=== PATIENT | male | born 1970 | race American Indian/Alaskan Native ===

== ENCOUNTER 2018-02-28 18:40 | Emergency (ER) | payer MEDICAID, OTHER ==
[2018-02-28 18:59] VITALS: PULSE 64; RESP 20; TEMP 98.2; O2SAT 100
[2018-02-28] MEDS ORDERED: Sodium Chloride 0.9% 1,000 ML IV ONE (19:42)
[2018-02-28 19:56] LABS: BASO % 0.1 % (0.0-2.0); EOS % 0.1 % (0.0-4.0); HEMOGLOBIN 12.6 g/dL (12.0-18.0); LYMPH # 1.3 K/uL (1.0-4.3); LYMPH % 8.5 % (20.0-40.0); MEAN CELL VOLUME 81.1 fL (80.0-94.0); MEAN CORPUSCULAR HEMOGLOBIN 26.9 pg (27.0-31.0); MEAN CORPUSCULAR HGB CONC 33.2 g/dL (33.0-37.0); MEAN PLATELET VOLUME 7.8 fL (7.2-11.7); MONO # 1.4 K/uL (0.0-0.8); MONO % 8.7 % (0.0-10.0); NEUT # 13.1 K/uL (1.8-7.0); NEUT % 82.6 % (50.0-75.0); PLATELET COUNT 302 K/uL (130-400); RBC 4.69 Mil/uL (4.40-5.90); RED CELL DISTRIBUTION WIDTH 14.1 % (11.5-14.5); WHITE BLOOD COUNT 15.8 K/uL (4.8-10.8)
[2018-02-28] MEDS ORDERED: Morphine 4 MG/ML VIAL ONE (20:02)
[2018-02-28] MEDS ORDERED: Sodium Chloride 0.9% 1,000 ML ONE (20:03)
[2018-02-28 20:06] LABS: INR 1.3; PROTHROMBIN TIME 14.5 SECONDS (9.7-12.2)
[2018-02-28 20:22] LABS: ALB/GLOB RATIO 1.3 (1.0-2.1); ALBUMIN 4.6 g/dL (3.5-5.0); ALT/SGPT 30 U/L (21-72); AST/SGOT 26 U/L (17-59); BLOOD UREA NITROGEN 15 mg/dL (9-20); CALCIUM 9.6 mg/dl (8.6-10.4); GFR AFRICAN-AMERICAN > 60; GFR NON-AFRICAN AMERICAN > 60; LIPASE 11 U/L (23-300)
[2018-02-28 20:30] LABS: BANDS 3 % (0-2); LYMPHOCYTE 13 % (20-40); MONOCYTE 8 % (0-10); NEUTROPHIL 76 % (50-75); TOTAL CELLS COUNTED 100
[2018-02-28 20:31] LABS: MICROCYTOSIS SLIGHT; PLATELET ESTIMATE NORMAL (NORMAL)
[2018-02-28 21:10] VITALS: BP 122/46
[2018-02-28] MEDS ORDERED: Iodixanol 320 mg/ml 150 ml Bottle IV ONE (21:12)
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
== END 2018-02-28 22:25 | disposition home or self-care (01) ==
LOC: C.ER 18:40
DX: R10.9 Unspecified abdominal pain (principal); R11.2 Nausea with vomiting, unspecified; S79.921D Unspecified injury of right thigh, subsequent encounter; V03.99XD Pedestrian with other conveyance injured in collision with car, pick-up truck or van, unspecified whether traffic or nontraffic accident, subsequent encounter
CPT/HCPCS: 71045; 73552; 80053; 80320; 83690; 85025; 85610; 85730; 96361; 96374; 96375; 99285; C9113; J2270; J2765; J7030